=== PATIENT | female | born 1995 | race Two or more races ===

== ENCOUNTER 2025-01-18 17:44 | Emergency (ER) | payer MEDICAID, SELFPAY ==
[2025-01-18 18:48] VITALS: BP 100/68; PULSE 102; RESP 18; TEMP 38.1; O2SAT 95
--- NOTE | 2025-01-18 19:05 | EDNOTE_ITS ---
ED General RME/HPI General Chief complaint: Fever Stated complaint: FEVER, THROAT SWOLLEN, DYSPNEA X 2 DAYS Time Seen by Provider: 01/18/25 18:11 Arrival date/time: 01/18/25 17:44 29-year-old female presents to the ED with complaint of sore throat, runny nose, nasal congestion, postnasal drip, difficulty breathing through her nose and fever. Symptoms x 3 days. Unknown temperature at home. Positive ill contacts at home. Related Data Previous Rx's ?Medication ?Instructions ?Recorded amoxicillin 875 mg-potassium 1 tab PO BID #20 tabs clavulanate 125 mg tablet Allergies Allergy/AdvReac Type Severity Reaction Status Date / Time No Known Allergies Allergy Verified 01/18/25 17:48 Review of Systems Review of Systems Systems Reviewed: All systems reviewed, normal except as documented Past Medical History Social History SMOKING STATUS: Current every day smoker ED Exam Narrative Physical exam: Alert and oriented 29-year-old female, no acute distress. She is febrile at 1 00.6. Blood pressure 100/68, pulse 102, respirations 18, O2 sat 95% on room air. Lungs are clear, mild tachycardia, abdomen is soft and nontender. TMs are without erythema, pharynx with erythema and mild tonsillar exudate bilaterally. No peritonsillar area cellulitis or abscess noted. Tender cervical adenopathy. Course Course Course Narrative: 29-year-old female presents to the ED with complaint of sore throat, runny nose, nasal congestion, postnasal drip, difficulty breathing through her nose and fever. Symptoms x 3 days. Unknown temperature at home. Positive ill contacts at home. Alert and oriented 29-year-old female, no acute distress. She is febrile at 100.6. Blood pressure 100/68, pulse 102, respirations 18, O2 sat 95% on room air. Lungs are clear, mild tachycardia, abdomen is soft and nontender. TMs are without erythema, pharynx with erythema and mild tonsillar exudate bilaterally. No peritonsillar area cellulitis or abscess noted. Tender cervical adenopathy. Quality Measures none Vital Signs Vital signs: Vital Signs Temperature 100.6 F H 01/18/25 18:48 Pulse Rate 102 H 01/18/25 18:48 Respiratory Rate 18 01/18/25 18:48 Blood Pressure 100/68 01/18/25 18:48 Pulse Oximetry (%) 95 01/18/25 18:48 Oxygen Delivery Method Room Air 01/18/25 18:48 Discharge Plan Plan Patient Disposition: HOME (Self Care) Discharge Disposition comment: Stable Prescriptions/Referrals Prescriptions/Med Rec: New amoxicillin-pot clavulanate 875-125 mg tablet 1 tab PO BID Qty: 20 0RF Problem List Clinical Impression: Acute tonsillitis, unspecified Impression comment: Take the antibiotics as prescribed and complete the course even though you may be feeling better. Patient/Caregiver Discharge Instructions Education Materials: Tonsillitis in Adults Additional Instructions: Follow-up with your primary care physician in 24 to 48 hours. Return to the ED for any new or worsening symptoms. Print Language: Sami Stand Alone Forms: [facility] Award Info., Patient Portal Info Letter PA/DIRECTOR STERILE PROCESSING Supervising Physician PA/DIRECTOR STERILE PROCESSING Supervising Physician: Dr. Rashad DOWD Patient Acuity Low Acuity (complete MDM as needed) Narrative: 29-year-old female presents to the ED with complaint of sore throat, runny nose, nasal congestion, postnasal drip, difficulty breathing through her nose and fever. Symptoms x 3 days. Unknown temperature at home. Positive ill contacts at home. Alert and oriented 29-year-old female, no acute distress. She is febrile at 100.6. Blood pressure 100/68, pulse 102, respirations 18, O2 sat 95% on room air. Lungs are clear, mild tachycardia, abdomen is soft and nontender. TMs are without erythema, pharynx with erythema and mild tonsillar exudate bilaterally. No peritonsillar area cellulitis or abscess noted. Tender cervical adenopathy. Clinical Information Provided by: patient Medical Records reviewed None Meds/Rx considered, not ordered None Labs/Rad/Tests considered, not ordered None Chronic Illness/Social Conditions which may negatively complicate care or outcome(s)-explain: None or not applicable EKG EKG not done Labs Labs: none Imaging Imaging interpretation: none or see narrative above Medication Administration(s) none Diagnosis Differential Diagnosis ED Complaint MDM: Viral URI, sinusitis, pharyngitis, exudative tonsillitis
== END 2025-01-18 21:47 | disposition home or self-care (01) ==
LOC: SERX 19:43
PROVIDERS: Emergency Provider Family Medicine
DX: J03.90 Acute tonsillitis, unspecified (principal); F17.210 Nicotine dependence, cigarettes, uncomplicated
CPT/HCPCS: 99281